=== PATIENT | female | born 1985 | race African-American/Black ===

== ENCOUNTER 2017-11-11 10:39 | Emergency (ER) | payer BC ==
[2017-11-11 10:53] VITALS: BP 128/79
[2017-11-11] MEDS ORDERED: SULFAMETHOXAZOLE/TRIMETHOPRIM 800-160 MG TABLET ONE (12:23)
== END 2017-11-11 12:45 | disposition home or self-care (01) ==
LOC: ER 10:39
PROC: 0H96XZZ Drainage of Back Skin, External Approach (ICD-10-PCS; principal; 2017-11-11)
DX: L02.212 Cutaneous abscess of back [any part, except buttock and flank] (principal); L70.9 Acne, unspecified
CPT/HCPCS: 99283

== ENCOUNTER 2020-03-08 21:31 | Emergency (ER) | payer BC ==
[2020-03-08 21:52] VITALS: BP 149/82
--- NOTE | 2020-03-09 08:01 | EKG REPORT ---
SEVERITY:- NORMAL ECG - SINUS RHYTHM : Confirmed by: Sam Thomas MD 09-Mar-2020 08:01:06
== END 2020-03-08 22:47 | disposition left against medical advice (07) ==
LOC: ER 21:31
DX: Z53.21 Procedure and treatment not carried out due to patient leaving prior to being seen by health care provider (principal)

== ENCOUNTER 2020-07-01 14:11 | Emergency (ER) | payer BC, MEDICAID, OTHER ==
[2020-07-01] MEDS ORDERED: NORMAL SALINE 1000 ML 1,000 ML IV ONE (14:59)
[2020-07-01] MEDS ORDERED: ONDANSETRON HCL INJ/PF 4 MG/2 ML SDV IV ONE (14:59)
--- NOTE | 2020-07-01 15:00 | ER Document Report ---
ED Medical Screen (RME) - General Chief Complaint: High Blood Sugar Stated Complaint: VOMITING,ELEVATED BLOOD SUGAR Time Seen by Provider: 07/01/20 14:58 Mode of Arrival: Ambulatory Information source: Patient Notes: Patient presents complaining of nausea vomiting diarrhea for the past 2 days. Patient states she recently started taking metformin and she feels that her vomiting and diarrhea symptoms are resolved with this medication. Patient recently just got diagnosed with diabetes. Patient complains of abdominal cramping prior to having diarrhea. I have greeted and performed a rapid initial assessment of this patient. A comprehensive ED assessment and evaluation of the patient, analysis of test results and completion of the medical decision making process will be conducted by additional ED providers. TRAVEL OUTSIDE OF THE [place] IN LAST 30 DAYS: No - Related Data Allergies/Adverse Reactions: Penicillins Allergy (Severe, Verified 03/12/20 14:07) povidone-iodine [From Betadine] Allergy (Unknown, Verified 03/12/20 14:07) Soap [From Betadine] Allergy (Unknown, Verified 03/12/20 14:07) morphine [Morphine] Allergy (Verified 03/12/20 14:07) Past Medical History - Past Medical History Cardiac Medical History: Denies: Hx Atrial Fibrillation, Hx Congestive Heart Failure, Hx Coronary Artery Disease, Hx Heart Attack, Hx Hypercholesterolemia, Hx Hypertension, Hx Peripheral Vascular Disease, Hx Heart Murmur Pulmonary Medical History: Denies: Hx Asthma, Hx Bronchitis, Hx COPD, Hx Pneumonia, Hx Tuberculosis Neurological Medical History: Reports: Hx Migraine. Denies: Hx Cerebrovascular Accident, Hx Seizures Renal/ Medical History: Denies: Hx End Stage Renal Disease, Hx Kidney Stones, Hx Peritoneal Dialysis Musculoskeltal Medical History: Denies Hx Arthritis Past Surgical History: Denies: Hx Appendectomy, Hx Bowel Surgery, Hx Section, Hx Cholecystectomy, Hx Coronary Artery Bypass Graft, Hx Gastric Bypass Surgery, Hx Herniorrhaphy, Hx Hysterectomy, Hx Mastectomy, Hx Pacemaker, Hx Tonsillectomy, Hx Tubal Ligation - Immunizations Hx Diphtheria, Pertussis, Tetanus Vaccination: Yes Physical Exam - Vital signs Vitals: Temp Pulse Resp BP Pulse Ox 98.7 F 108 H 17 148/94 H 97 07/01/20 14:16 07/01/20 14:16 07/01/20 14:16 07/01/20 14:16 07/01/20 14:16 - General General appearance: Appears well, Alert - Cardiovascular Rhythm: Tachycardia Course - Vital Signs Vital signs: Temp Pulse Resp BP Pulse Ox 98.7 F 108 H 17 148/94 H 97 07/01/20 14:16 07/01/20 14:16 07/01/20 14:16 07/01/20 14:16 07/01/20 14:16
[2020-07-01 16:05] LABS: ABSOLUTE BASOPHILS # (AUTO) 0.2 10^3/uL (0.0-0.2); ABSOLUTE EOSINOPHILS # (AUTO) 0.1 10^3/uL (0.0-0.6); ABSOLUTE LYMPHOCYTES (AUTO) 3.5 10^3/uL (0.5-4.7); ABSOLUTE MONOCYTES (AUTO) 0.6 10^3/uL (0.1-1.4); ABSOLUTE NEUT (AUTO) 8.6 10^3/uL (1.7-8.2); BASOPHILS % (AUTO) 1.6 % (0-2); EOSINOPHILS % (AUTO) 0.7 % (0-6); HEMATOCRIT 41.6 % (36.0-47.0); HEMOGLOBIN 13.7 g/dL (12.0-15.5); MEAN CORPUSCULAR HEMOGLOBIN 28.4 pg (27.0-33.4); MEAN CORPUSCULAR VOLUME 86 fl (80-97); MONOCYTES % (AUTO) 4.4 % (3-13); PLATELET COUNT 341 10^3/uL (150-450); RED BLOOD COUNT 4.82 10^6/uL (3.72-5.28); RED CELL DISTRIBUTION WIDTH 14.2 % (11.5-14.0); SEGMENTED NEUTROPHILS % (AUTO) 66.3 % (42-78); TOTAL CELLS COUNTED % (AUTO) 100 %
[2020-07-01 16:13] LABS: VENOUS BLOOD BASE EXCESS -2.7 mmol/L; VENOUS BLOOD HCO3 23.8 mmol/L (20-32); VENOUS BLOOD PCO2 47.5 mmHg (35-63); VENOUS BLOOD PH 7.32 (7.30-7.42)
[2020-07-01 16:21] LABS: ALBUMIN 4.5 g/dL (3.5-5.0); ALKALINE PHOSPHATASE 148 U/L (38-126); ANION GAP 13 (5-19); ASPARTATE AMINO TRANSFERASE 25 U/L (14-36); BILIRUBIN,DIRECT 0.3 mg/dL (0.0-0.4); BILIRUBIN,TOTAL 0.7 mg/dL (0.2-1.3); BLOOD UREA NITROGEN 12 mg/dL (7-20); CALCIUM 9.9 mg/dL (8.4-10.2); CARBON DIOXIDE 24 mmol/L (22-30); CHLORIDE 101 mmol/L (98-107); GLUCOSE 207 mg/dL (75-110); POTASSIUM 4.6 mmol/L (3.6-5.0); TOTAL PROTEIN 9.4 g/dL (6.3-8.2)
[2020-07-01] MEDS ORDERED: METOCLOPRAMIDE HCL INJ/PF 10 MG/2 ML SDV IV ONE (16:48)
--- NOTE | 2020-07-01 16:50 | ER Document Report ---
ED General - General Chief Complaint: Nausea/Vomiting/Diarrhea Stated Complaint: VOMITING,ELEVATED BLOOD SUGAR Time Seen by Provider: 07/01/20 14:58 Mode of Arrival: Ambulatory Notes: Patient is a 35-year-old -[place] female with a history of obesity who presents to the emergency department with a chief complaint of nausea, vomiting and diarrhea. She states that she was diagnosed on Sunday with diabetes with a random blood sugar of 295 at her new primary doctor's office. She reports that they immediately initiated metformin 1000 mg p.o. twice daily. She took her first dose Sunday night and early Sunday morning around 3 AM she started having nausea, vomiting and diarrhea. She is had several episodes since. She states that she feels fatigued and drained. She states that prior to this she was losing weight and exercising regularly. She states that her doctor told her to stop trying to lose weight as it would be harmful to her. She states that she no longer has the energy to exercise because I told her to take up a 0 sugar intake diet. She states she feels generally terrible has tried to call her doctor several times to report these changes and cannot get a hold of them so she reported here for evaluation. Denies any abdominal pain, urinary complaints, chest pain or shortness of breath. No fever or chills. No recent travel or known sick contacts. TRAVEL OUTSIDE OF THE [place] IN LAST 30 DAYS: No - Related Data Allergies/Adverse Reactions: Penicillins Allergy (Severe, Verified 07/01/20 15:00) Shortness of Breath povidone-iodine [From Betadine] Allergy (Intermediate, Verified 07/01/20 15:00) Hives Soap [From Betadine] Allergy (Intermediate, Verified 07/01/20 15:00) Hives Home Medications: metformin, humira, plaquenil, prednisone, bcp Past Medical History - General Information source: Patient - Social History Smoking Status: Never Smoker Chew tobacco use (# tins/day): No Frequency of alcohol use: Occasional Drug Abuse: None Family History: Reviewed & Not Pertinent Patient has homicidal ideation: No - Past Medical History Cardiac Medical History: Denies: Hx Atrial Fibrillation, Hx Congestive Heart Failure, Hx Coronary Artery Disease, Hx Heart Attack, Hx Hypercholesterolemia, Hx Hypertension, Hx Pe ripheral Vascular Disease, Hx Heart Murmur Pulmonary Medical History: Denies: Hx Asthma, Hx Bronchitis, Hx COPD, Hx Pneumonia, Hx Tuberculosis Neurological Medical History: Reports: Hx Migraine. Denies: Hx Cerebrovascular Accident, Hx Seizures Renal/ Medical History: Denies: Hx End Stage Renal Disease, Hx Kidney Stones, Hx Peritoneal Dialysis Musculoskeletal Medical History: Denies Hx Arthritis Past Surgical History: Denies: Hx Appendectomy, Hx Bowel Surgery, Hx Section, Hx Cholecystectomy, Hx Coronary Artery Bypass Graft, Hx Gastric Bypass Surgery, Hx Herniorrhaphy, Hx Hysterectomy, Hx Mastectomy, Hx Pacemaker, Hx Tonsillectomy, Hx Tubal Ligation - Immunizations Hx Diphtheria, Pertussis, Tetanus Vaccination: Yes Hx Pneumococcal Vaccination: 11/05/00 Review of Systems - Review of Systems Constitutional: Malaise. denies: Fever EENT: denies: Throat pain Cardiovascular: denies: Dizziness Respiratory: denies: Short of breath Gastrointestinal: Diarrhea, Nausea, Vomiting. denies: Abdominal pain Genitourinary: denies: Pain Female Genitourinary: denies: Vaginal discharge Musculoskeletal: denies: Deformity Skin: denies: Lesions Hematologic/Lymphatic: denies: Easy bruising Neurological/Psychological: denies: Seizure Physical Exam - Vital signs Vitals: Temp Pulse Resp BP Pulse Ox 98.7 F 108 H 17 148/94 H 97 07/01/20 14:16 07/01/20 14:16 07/01/20 14:16 07/01/20 14:16 07/01/20 14:16 - General General appearance: Appears well, Alert In distress: None - HEENT Head: Normocephalic, Atraumatic Eyes: Normal Extraocular movements intact: Yes Eyelashes: Normal Pupils: PERRL Ears: Normal External canal: Normal Tympanic membrane: Normal Mouth/Lips: Normal Pharynx: Normal Neck: Supple - Respiratory Respiratory status: No respiratory distress Chest status: Nontender Breath sounds: Normal Chest palpation: Normal - Cardiovascular Rhythm: Regular Heart sounds: Normal auscultation - Abdominal Inspection: Normal Distension: No distension Bowel sounds: Normal Tenderness: Nontender Organomegaly: No organomegaly - Extremities General upper extremity: Normal inspection, Nontender, Normal color, Normal ROM, Normal temperature General lower extremity: Normal inspection, Nontender, Normal color, Normal ROM, Normal temperature, Normal weight bearing. No: Rc's sign - Neurological Neuro grossly intact: Yes Cognition: Normal Orientation: AAOx4 Brianna Coma Scale Eye Opening: Spontaneous [place] Coma Scale Verbal: Oriented [place] Coma Scale Motor: Obeys Commands Brianna Coma Scale Total: 15 Speech: Normal Sensory: Normal - Psychological Associated symptoms: Normal affect, Normal mood - Skin Skin Temperature: Warm Skin Moisture: Dry Skin Color: Normal Course - Re-evaluation Re-evalutation: 07/01/20 18:29 Initial glucose 193, laboratory confirmation 207. Urinalysis showing evidence of a UTI. Patient will be started on Bactrim, sent home with a prescription for Zofran in the event of continuation of nausea and vomiting. We discussed that this is likely directly related to the new onset high-dose metformin. Patient will discontinue metformin at this time. We will attempt to write her prescription from this emergency department for a glucometer and test strips however it is unclear if her insurance will pay for this. She is very eager to change her dietary habits and to continue exercising. She wishes to trial lifestyle modifications before going back to pharmacotherapy. She will discuss with her primary doctor her options given that metformin has caused her severe adverse reaction. I discussed with her the importance of outpatient follow-up and advised that she return here or any ER immediately with any new, persistent or worsening symptoms. She verbalized understood and agreed. Patient was giving a very large handout from up-to-date regarding diabetes from diagnosis to management and patient education. . - Vital Signs Vital signs: Temp Pulse Resp BP Pulse Ox 98.7 F 108 H 17 148/94 H 97 07/01/20 14:16 07/01/20 14:16 07/01/20 14:16 07/01/20 14:16 07/01/20 14:16 - Laboratory Result Diagrams: 07/01/20 15:47 07/01/20 15:47 Laboratory results interpreted by me: 07/01/20 07/01/20 07/01/20 14:59 15:47 15:47 WBC 13.0 H RDW 14.2 H Absolute Neuts (auto) 8.6 H Glucose 207 H POC Glucose 193 H Alkaline Phosphatase 148 H Total Protein 9.4 H Urine Protein Urine Glucose (UA) Urine Ketones Ur Leukocyte Esterase Urine Ascorbic Acid 07/01/20 17:33 WBC RDW Absolute Neuts (auto) Glucose POC Glucose Alkaline Phosphatase Total Protein Urine Protein 100 H Urine Glucose (UA) 150 H Urine Ketones 80 H Ur Leukocyte Esterase MODERATE H Urine Ascorbic Acid 40 H Discharge - Discharge Clinical Impression: Hyperglycemia UTI (urinary tract infection) Qualifiers: Urinary tract infection type: site unspecified Hematuria presence: without hematuria Qualified Code(s): N39.0 - Urinary tract infection, site not specified Nausea & vomiting Qualifiers: Vomiting type: unspecified Vomiting Intractability: unspecified Qualified Code(s): R11.2 - Nausea with vomiting, unspecified Metformin adverse reaction Qualifiers: Encounter type: initial encounter Qualified Code(s): T38.3X5A - Adverse effect of insulin and oral hypoglycemic [antidiabetic] drugs, initial encounter Condition: Stable Disposition: HOME, SELF-CARE Instructions: Urinary Tract Infection ([facility]), Diabetes ([facility]) Additional Instructions: Follow-up with your regular doctor in 2 to 3 days for reevaluation. Return here or any ER immediately with any new, persistent or worsening symptoms. Prescriptions: Sulfamethoxazole/Trimethoprim [Bactrim Ds Tablet] 1 each PO BID #14 tablet Miscellaneous Medical Supply [Tablet Cutter] 1 each TOP ASDIR PRN #1 each PRN Reason: Ondansetron [Zofran Odt 4 mg Tablet] 4 mg PO Q8 PRN #20 tab.rapdis PRN Reason:
[2020-07-01 18:13] LABS: APPEARANCE,URINE SLIGHTLY-CLOUDY; BILIRUBIN,URINE NEGATIVE (NEGATIVE); COLOR,URINE YELLOW; GLUCOSE, URINE 150 mg/dL (NEGATIVE); KETONES,URINE 80 mg/dL (NEGATIVE); LEUKOCYTE ESTERASE,URINE MODERATE (NEGATIVE); NITRITE,URINE NEGATIVE (NEGATIVE); PROTEIN,URINE 100 mg/dL (NEGATIVE); URINE SPECIFIC GRAVITY 1.033; UROBILINOGEN,URINE NEGATIVE mg/dL (<2.0)
[2020-07-01 18:20] LABS: ADD MANUAL MICROSCOPIC YES
[2020-07-01 18:21] LABS: AMORPHOUS SEDIMENT,UR 1+; BACTERIA,URINE TRACE /HPF; RBC,URINE 0-1 /HPF
[2020-07-01] MEDS ORDERED: SULFAMETHOXAZOLE/TRIMETHOPRIM 800-160 MG TABLET PO ONE (19:08)
[2020-07-01 19:09] VITALS: BP 144/84
== END 2020-07-01 19:13 | disposition home or self-care (01) ==
LOC: ER 14:11
DX: T38.3X5A Adverse effect of insulin and oral hypoglycemic [antidiabetic] drugs, initial encounter (principal); N39.0 Urinary tract infection, site not specified; E11.65 Type 2 diabetes mellitus with hyperglycemia; R11.2 Nausea with vomiting, unspecified; R19.7 Diarrhea, unspecified; E66.9 Obesity, unspecified; R53.83 Other fatigue; Z79.84 Long term (current) use of oral hypoglycemic drugs; Z88.0 Allergy status to penicillin; Z88.8 Allergy status to other drugs, medicaments and biological substances; Z79.899 Other long term (current) drug therapy
CPT/HCPCS: 99284; 96361; 96374; 96375; 36415; 82962; 83690; 84703; 85025; 80053; 81001; 82803; J2765; J2405; J7030